=== PATIENT | male | born 1985 | race Caucasian/White ===

== ENCOUNTER 2019-04-14 09:09 | Emergency (ER) | payer MEDICAID ==
[~2019-04-14] VITALS: Ht 172.7 cm; Wt 80.3 kg
[2019-04-14 09:23] VITALS: BP 152/80; Ht 172.7 cm; Wt 80.3 kg
== END 2019-04-14 11:29 | disposition home or self-care (01) ==
LOC: ED 09:09
DX: H11.32 Conjunctival hemorrhage, left eye (principal); S00.212A Abrasion of left eyelid and periocular area, initial encounter; W22.8XXA Striking against or struck by other objects, initial encounter; Y93.89 Activity, other specified; Y92.89 Other specified places as the place of occurrence of the external cause; Y99.8 Other external cause status
CPT/HCPCS: 90715